=== PATIENT | female | born 1975 | race Caucasian/White ===

== ENCOUNTER → 2016-11-08 | Outpatient (CLI) | payer BC ==
--- NOTE | 2016-11-11 07:49 | MM ---
Reason for exam: screening (asymptomatic). Baseline mammogram. History: Family history of breast cancer in maternal aunt at age 60. Taking hormonal contraceptives beginning at age 19. Physical Findings: Nurse Summary: 0.5cm nodule in the left breast at 3:30 (nurse dw). MG Screening Mammo w CAD Bilateral CC and MLO view(s) were taken. There are scattered fibroglandular densities. Palpable marker upper outer quadrant on the left breast. Some global asymmetry seen posteriorly in the upper outer quadrant near the palpable marker. No suspicious calcifications, mass or other abnormality seen. These results were verbally communicated with the patient and result sheet given to the patient on 11/08/16. ASSESSMENT: Incomplete: need additional imaging evaluation, BI-RAD 0 RECOMMENDATION: Special view mammogram of the left breast. (lateral view) Ultrasound of the left breast. (upper outer quadrant)
--- NOTE | 2016-11-11 07:50 | MM ---
Reason for exam: additional evaluation requested from abnormal screening. History: Family history of breast cancer in maternal aunt at age 60. Taking hormonal contraceptives beginning at age 19. Physical Findings: Breast exam preformed at baseline screening. MG Work Up Mamm w CAD LT ML view(s) were taken of the left breast. There are scattered fibroglandular densities. There is no discrete abnormality. Palpable marker redemonstrated. These results were verbally communicated with the patient and result sheet given to the patient on 11/08/16. ASSESSMENT: Incomplete: need additional imaging evaluation, BI-RAD 0 RECOMMENDATION: Ultrasound of the left breast.
--- NOTE | 2016-11-11 07:53 | USB ---
Reason for exam: additional evaluation requested from abnormal screening. History: Family history of breast cancer in maternal aunt at age 60. Taking hormonal contraceptives beginning at age 19. US Breast Workup Limited LT Left breast ultrasound demonstrates no cystic or solid lesion with particular attention to the 3 o'clock area palpated by the nurse. Scanned upper outer quadrant 12-3 o'clock. These results were verbally communicated with the patient and result sheet given to the patient on 11/08/16. ASSESSMENT: Negative, BI-RAD 1 RECOMMENDATION: Return to routine screening mammogram schedule for both breasts. Manage on a clinical basis with regard to any suspicious palpable areas.
== END | disposition home or self-care (01) ==
LOC: RADMAMWWP 13:05
PROVIDERS: ATTEND Obstetrics & Gynecology
DX: Z12.31 Encounter for screening mammogram for malignant neoplasm of breast (principal); R92.8 Other abnormal and inconclusive findings on diagnostic imaging of breast; Z80.3 Family history of malignant neoplasm of breast
CPT/HCPCS: 76642; G0202; G0206

== ENCOUNTER → 2019-10-05 | Outpatient (CLI) | payer BC ==
--- NOTE | 2019-10-05 11:24 | MM ---
Reason for exam: screening (asymptomatic). Last mammogram was performed 2 years and 11 months ago. History: Family history of breast cancer in maternal aunt at age 60. Taking hormonal contraceptives beginning at age 19. Physical Findings: A clinical breast exam by your physician is recommended on an annual basis and results should be correlated with mammographic findings. MG Screening Mammo w CAD Bilateral CC and MLO view(s) were taken. Prior study comparison: November 08, 2016, left breast MG work up mamm w CAD LT. November 08, 2016, bilateral MG screening mammo w CAD. There are scattered fibroglandular densities. Asymmetric breast tissue stable left breast. There is no discrete abnormality. ASSESSMENT: Negative, BI-RAD 1 RECOMMENDATION: Routine screening mammogram of both breasts in 1 year.
== END | disposition home or self-care (01) ==
LOC: RADMAMWWP 07:18
PROVIDERS: ATTEND Obstetrics & Gynecology
DX: Z12.31 Encounter for screening mammogram for malignant neoplasm of breast (principal); Z80.3 Family history of malignant neoplasm of breast
CPT/HCPCS: 77067

== ENCOUNTER → 2023-05-08 | Outpatient (CLI) | payer BC ==
--- NOTE | 2023-05-09 12:18 | BD ---
EXAMINATION TYPE: Axial Bone Density DATE OF EXAM: 05/08/2023 CLINICAL HISTORY: 48 years old Female. ICD-10 CODE: N95.1 Height: 66 Weight: 267 FRAX RISK QUESTIONS: Family History (Parent hip fracture): no History of Fracture in Adulthood: no Secondary Osteoporosis: no Rheumatoid Arthritis: no Current Tobacco Use: no RISK FACTORS HISTORY OF: Family History of Osteoporosis: no Active: yes Diet low in dairy products/other sources of calcium: no Postmenopausal woman: yes MEDICATIONS: Additional Medications: no EXAM MEASUREMENTS: Bone mineral densitometry was performed using the [employer] System. Bone mineral density as measured about the Lumbar spine is: ----- L1-L4(G/cm2): 1.497 T Score Values are as follows: ----- L1: 1.5 ----- L2: 2.9 ----- L3: 3.4 ----- L4: 2.6 ----- L1-L4: 2.6 Z Score Values are as follows: ----- L1: 0.5 ----- L2: 1.9 ----- L3: 2.4 ----- L4: 1.6 ----- L1-L4: 1.7 Bone mineral density baseline Bone mineral density about the R hip (g/cm2): 1.177 Bone mineral density about the L hip (g/cm2): 1.194 T Score values are as follows: -----R Neck: 0.7 -----L Neck: 0.3 -----R Total: 1.3 -----L Total: 1.5 Z Score values are as follows: -----R Neck: 0.6 -----L Neck: 0.2 -----R Total: 0.9 -----L Total: 1.0 Bone mineral density baseline FRAX%s: The graph provided illustrates a 2.4% chance for a major osteoporotic fx and a 0.0% chance fo r the hips probability for fx in 10 years time. IMPRESSION: Normal (Values between +1 and -1 indicate normal bone mass). Consider repeating this study in 5 year s or sooner if there is some new clinical indication. NOTE: T-SCORE=SD OF THE YOUNG ADULT MEAN.
--- NOTE | 2023-05-12 01:41 | MM ---
Reason for Exam: Hx of breast augmentation, asymptomatic. Last mammogram was performed 3 year(s) and 7 month(s) ago. Patient History: Menarche at age 13. First Full-Term at age 24. Perimenopausal. Currently using Hormonal Contraceptives, starting at age 19. Bilateral Implants. Maternal aunt had breast cancer, age 60. Risk Values: Yvonne 5 year model risk: 0.8%. NCI Lifetime model risk: 8.4%. Prior Study Comparison: 11/08/2016 Bilateral Screening Mammogram, [facility]. 11/08/2016 Left Diagnostic Mammogram, [facility]. 10/05/2019 Bilateral Screening Mammogram, [facility]. Tissue Density: There are scattered fibroglandular densities. Findings: Analyzed By CAD. Bilateral retropectoral silicone implants are present, new in the interval. There is no suspicious group of microcalcifications or new suspicious mass in either breast. Overall Assessment: Negative, BI-RAD 1 Management: Screening Mammogram of both breasts in 1 year. . Patient should continue monthly self-breast exams. A clinical breast exam by your physician is recommended on an annual basis. This exam should not preclude additional follow-up of suspicious palpable abnormalities. Note on Yvonne scores and lifetime risk: 1. A Yvonne score greater than 3% is considered moderate risk. If this is the case, consider specialist referral to assess eligibility for a risk reducing agent. 2. If overall lifetime risk for the development of breast cancer is 20% or higher, the patient may qualify for future screening with alternating mammogram and breast MRI. Electronically signed and approved by: Ronan Nguyen M.D. Radiologist
== END | disposition home or self-care (01) ==
LOC: RADMAMWWP 15:14
PROVIDERS: ATTEND Obstetrics & Gynecology
DX: Z12.31 Encounter for screening mammogram for malignant neoplasm of breast (principal); N95.1 Menopausal and female climacteric states; Z80.3 Family history of malignant neoplasm of breast
CPT/HCPCS: 77063; 77067; 77080

== ENCOUNTER → 2024-10-29 | Outpatient (CLI) | payer BC ==
--- NOTE | 2024-10-29 11:21 | MM ---
Reason for Exam: Screening (asymptomatic). Last mammogram was performed 1 year(s) and 6 month(s) ago. Patient History: Menarche at age 13. First Full-Term at age 24. Perimenopausal. Currently using Hormonal Contraceptives, starting at age 19. Bilateral Implants. Maternal aunt had breast cancer, age 60. Risk Values: Yvonne 5 year model risk: 0.8%. NCI Lifetime model risk: 8.3%. Prior Study Comparison: 11/08/2016 Left Diagnostic Mammogram, [facility]. 10/05/2019 Bilateral Screening Mammogram, [facility]. 05/08/2023 Bilateral MG 3D screen mammo imp/cad., [facility]. Tissue Density: There are scattered areas of fibroglandular density. Findings: Analyzed By CAD. Redemonstrated bilateral retropectoral silicone implants. Multiple area of focal asymmetry lateral left breast middle depth remains unchanged. There is no suspicious group of microcalcifications or new suspicious mass in either breast. Overall Assessment: Benign, BI-RAD 2 Management: Screening Mammogram of both breasts in 1 year. Patient should continue monthly self-breast exams. A clinical breast exam by your physician is recommended on an annual basis. This exam should not preclude additional follow-up of suspicious palpable abnormalities. Note on Yvonne scores and lifetime risk: 1. A Yvonne score greater than 3% is considered moderate risk. If this is the case, consider specialist referral to assess eligibility for a risk reducing agent. 2. If overall lifetime risk for the development of breast cancer is 20% or higher, the patient may qualify for future screening with alternating mammogram and breast MRI. [facility], , 10/29/2024 11:17 AM. Electronically signed and approved by: Ronan Nguyen M.D. Radiologist
== END | disposition home or self-care (01) ==
LOC: RADMAMWWP 08:39
PROVIDERS: ATTEND Obstetrics & Gynecology
DX: Z12.31 Encounter for screening mammogram for malignant neoplasm of breast (principal); R92.323 Mammographic fibroglandular density, bilateral breasts; Z80.3 Family history of malignant neoplasm of breast; Z92.0 Personal history of contraception
CPT/HCPCS: 77063; 77067

== ENCOUNTER 2024-11-19 12:15 | Emergency (ER) | payer BC ==
[2024-11-19 13:19] LABS: Basophils # (A) 0.03 10*3/uL (0.00-0.10); Basophils % (A) 0.2 %; HCT 45.3 % (37.2-46.3); HGB 15.2 g/dL (12.0-15.0); Lymphocytes # (A) 0.17 10*3/uL (0.90-5.00); Lymphocytes % (A) 1.4 %; MCH 30.3 pg (27.0-32.0); MCHC 33.6 g/dL (32.0-37.0); MCV 90.2 fL (80.0-97.0); Monocytes # (A) 0.29 10*3/uL (0.20-1.00); Monocytes % (A) 2.3 %; Neutrophils # (A) 11.92 10*3/uL (1.80-7.70); Neutrophils % (A) 95.8 %; Platelet Count 226 10*3/uL (140-440); RBC 5.02 10*6/uL (4.10-5.20); RDW 13.7 % (11.5-14.5); WBC 12.45 10*3/uL (4.50-10.00)
[2024-11-19] MEDS: ONDANSETRON 4 MG/2 ML VIAL IVP STA (13:19)
[2024-11-19] MEDS: SODIUM CHLORIDE 0.9% 1,000 ML IV SCH (13:20)
[2024-11-19 13:38] LABS: HCG,Qualitative Serum Not Detected
[2024-11-19 13:46] LABS: ALT 20 U/L (4-34); African American GFR (CKD) >90 (>60 ml/min/1.73 sqM); Albumin 4.5 g/dL (3.5-5.0); Amylase 47 U/L (30-110); Anion Gap 13 mmol/L; Blood Urea Nitrogen 23 mg/dL (7-17); Calcium 9.7 mg/dL (8.4-10.2); Carbon Dioxide 21 mmol/L (22-30); Chloride 105 mmol/L (98-107); Glucose 125 mg/dL (74-99); Lipase 67 U/L (23-300); Non-African American GFR(CKD) >90 (>60 ml/min/1.73 sqM); Sodium 139 mmol/L (137-145); Total Protein 7.7 g/dL (6.3-8.2)
[2024-11-19 13:48] LABS: Appearance,Urine Clear (Clear); Bilirubin,Urine Negative (Negative); Blood,Urine Negative (Negative); Color,Urine Yellow; Glucose,Urine (UA) Negative (Negative); Ketones,Urine 2+ (Negative); Leukocyte Esterase,Urine Negative (Negative); Nitrite,Urine Negative (Negative); PH, Urine 6.5 (5.0-8.0); Protein,Urine Negative (Negative); Urobilinogen,Urine <2.0 mg/dL (<2.0)
[2024-11-19 13:52] LABS: AST 25 U/L (14-36); Alkaline Phosphatase 74 U/L (38-126); Potassium 4.5 mmol/L (3.5-5.1)
[2024-11-19 13:59] LABS: Influenza A Not Detected (Not Detectd); Influenza B Not Detected (Not Detectd); RSV Not Detected (Not Detectd)
[2024-11-19 14:06] LABS: Partial Thromboplastin Time 24.3 sec (22.0-30.0); Prothrombin Time 10.6 sec (10.0-12.5)
--- NOTE | 2024-11-19 14:15 | ED ---
General Adult HPI - General Chief complaint: Nausea/Vomiting/Diarrhea Stated complaint: NVD Time Seen by Provider: 11/19/24 12:50 Source: patient, RN notes reviewed, old records reviewed Mode of arrival: ambulatory Limitations: no limitations - History of Present Illness Initial comments: Patient is a 49-year-old female who presents emergency department complaining of abdominal pain, nausea, vomiting. All started this morning at 3:30 AM. States that seems to be improving but wants to be evaluated. Has some general periumbilical pain but no other obvious acute complaints. Denies chest pain or shortness of breath. Denies history of abdominal surgeries. Has no significant past medical history. Takes no medications at home. States the emesis is nonbilious nonbloody. States the diarrhea is nonbloody. Presents for further evaluation at this time. No known sick contacts. - Related Data Home Medications Medication Instructions Recorded Confirmed No Known Home Medications 02/20/14 02/20/14 Allergies Allergy/AdvReac Type Severity Reaction Status Date / Time No Known Allergies Allergy Verified 11/19/24 12:27 Review of Systems ROS Statement: Those systems with pertinent positive or pertinent negative responses have been documented in the HPI. Review of Systems: CONST: Denies fever EYES: Denies blurry vision ENT: Denies nasal congestion C/V: Denies Chest pain RESP: Denies shortness of breath GI: Endorses periumbilical discomfort : Denies dysuria SKIN: Denies rash. MSK: Denies joint pain. NEURO: Denies headache ROS Other: All systems not noted in ROS Statement are negative. Past Medical History Past Medical History: No Reported History History of Any Multi-Drug Resistant Organisms: None Reported Past Surgical History: No Surgical Hx Reported Past Psychological History: No Psychological Hx Reported Smoking Status: Never smoker Past Alcohol Use History: Rare Past Drug Use History: None Reported General Exam - General Exam Comments Initial Comments: General: Appears in no acute distress. HEAD: Normal with no signs of head trauma. EYES: EOMI ENT: Dry mucous membranes. RESPIRATORY: Clear breath sounds bilaterally. No wheezes, rales, or rhonchi. C/V: Regular rate and rhythm. S1 and S2 auscultated, peripheral pulses 2+ and intact throughout ABD: Abdomen is soft, nondistended. Tender to palpation periumbilically. No guarding or rebound tenderness. No peritoneal signs. EXT: no obvious deformity SKIN: No rashes or lesions observed on exposed skin. NEURO: Alert and oriented x 4. Limitations: no limitations Course Vital Signs 11/19/24 11/19/24 12:25 15:04 Temperature 98.6 F 97.8 F Pulse Rate 77 73 Respiratory 20 16 Rate Blood Pressure 141/81 125/82 O2 Sat by Pulse 99 100 Oximetry Medical Decision Making - Medical Decision Making Was pt. sent in by a medical professional or institution (, PA, MAIL [employer], urgent care, hospital, or skilled nursing...) When possible be specific @ -No Did you speak to anyone other than the patient for history (EMS, parent, family, police, friend...)? What history was obtained from this source @ -No Did you review nursing and triage notes (agree or disagree)? Why? @ -I reviewed and agree with nursing and triage notes Were old charts reviewed (outside hosp., previous admission, EMS record, old EKG, old radiological studies, urgent care reports/EKG's, skilled nursing records)? Report findings @ -No old charts were reviewed Differential Diagnosis (chest pain, altered mental status, abdominal pain women, abdominal pain men, vaginal bleeding, weakness, fever, dyspnea, syncope, headache, dizziness, GI bleed, back pain, seizure, CVA, palpatations, mental health, musculoskeletal)? @ -Differential Abdominal Pain Women: Appendicitis, Cholecystitis, diverticulosis, ischemic bowel, pancreatitis, hepatitis, UTI, gastroenteritis, AAA, incarcerated hernia, bowel obstruction, constipation, inflammatory bowel, hepatitis, peptic ulcer disease, splenic infa rction, perforated viscus, vulvitis, ovarian torsion, PID, kidney stone, placenta abruption, this is not meant to be an all-inclusive list EKG interpreted by me (3pts min.). @ -None none X-rays interpreted by me (1pt min.). @ -None done CT interpreted by me (1pt min.). @ -None done U/S interpreted by me (1pt. min.). @ -None done What testing was considered but not performed or refused? (CT, X-rays, U/S, labs)? Why? @ -I offered CT imaging however patient declines at this time. Patient is feeling improved following symptomatic treatment. I am in agreement this plan. What meds were considered but not given or refused? Why? @ -None Did you discuss the management of the patient with other professionals (professionals i.e. , PA, [employer], lab, RT, psych nurse, social worker psychiatric, od grinder operator, teacher, medical scientific officer, case resource manager)? Give summary @ -No Was smoking cessation discussed for >3mins.? @ -No Was critical care preformed (if so, how long)? @ -No Were there social determinants of health that impacted care today? How? (Homelessness, low income, unemployed, alcoholism, drug addiction, transportation, low edu. Level, literacy, decrease access to med. care, assisted, rehab)? @ -No Was there de-escalation of care discussed even if they declined (Discuss DNR or withdrawal of care, Hospice)? DNR status @ -No What co-morbidities impacted this encounter? (DM, HTN, Smoking, COPD, CAD, Canc er, CVA, ARF, Chemo, Hep., AIDS, mental health diagnosis, sleep apnea, morbid obesity)? @ -None Was patient admitted / discharged? Hospital course, mention meds given and route, prescriptions, significant lab abnormalities, going to OR and other pertinent info. @ -Patient presents with nausea, vomiting, diarrhea as well as mild abdominal discomfort. She states all symptoms are improved and that 1 to be evaluated. Vital signs within acceptable limits. Exam remarkable for dehydration. We will obtain abdominal labs. I did offer obtaining CT abdomen pelvis however patient would like to obtain labs first and see how she feels after medications which I believe is reasonable. Labs remarkable for mild leukocytosis of 12.4 which is likely reactive. Lactic acid is negative. Remainder the labs unremarkable. On reevaluation, patient is feeling improved. I once again offered the CT imaging which she declined. Patient will be discharged home at this time. She was in agreement this plan. She is discharged home with an ODT Zofran starter pack. Symptoms likely secondary to a viral syndrome. I instructed the patient to follow up with their PCP in the next 1-3 days. I explained that the patient should return to the emergency department if they experience any worsening symptoms. Strict return precautions were discussed with the patient. The patient expressed understanding of these instructions. I answered all questions that the patient had. The patient was discharged home in good condition with their prescriptions and follow up information. Undiagnosed new problem with uncertain prognosis? @ -No Drug Therapy requiring intensive monitoring for toxicity (Heparin, Nitro, Insu ellie, Cardizem)? @ -No Were any procedures done? @ -No Diagnosis/symptom? @ -Abdominal pain of unknown etiology, dehydration, nausea and vomiting. Diarrhea Acute, or Chronic, or Acute on Chronic? @ -Acute Uncomplicated (without systemic symptoms) or Complicated (systemic symptoms)? @ -Uncomplicated Side effects of treatment? @ -No Exacerbation, Progression, or Severe Exacerbation? @ -No Poses a threat to life or bodily function? How? (Chest pain, [place], [place], pneumonia, PE, COPD, DKA, ARF, appy, cholecystitis, CVA, Diverticulitis, Homicidal, Suicidal, threat to staff... and all critical care pts) @ -Unlikely - Lab Data Result diagrams: 11/19/24 13:07 11/19/24 13:07 Lab Results 11/19/24 11/19/24 11/19/24 Range/Units 13:07 13:07 13:07 WBC 12.45 H (4.50-10.00) 10*3/uL RBC 5.02 (4.10-5.20) 10*6/uL Hgb 15.2 H (12.0-15.0) g/dL Hct 45.3 (37.2-46.3) % MCV 90.2 (80.0-97.0) fL MCH 30.3 (27.0-32.0) pg MCHC 33.6 (32.0-37.0) g/dL Plt Count 226 (140-440) 10*3/uL MPV 12.0 (9.5-12.2) fL Immature Gran % (Auto) 0.3 % Neutrophils % 95.8 % Lymphocytes % 1.4 % Monocytes % 2.3 % Eosinophils % 0.0 % Basophils % 0.2 % Immature Gran # 0.04 (0.00-0.04) 10*3/uL Neutrophils # 11.92 H (1.80-7.70) 10*3/uL Lymphocytes # 0.17 L (0.90-5.00) 10*3/uL Monocytes # 0.29 (0.20-1.00) 10*3/uL Eosinophils # 0.00 L (0.04-0.35) 10*3/uL Basophils # 0.03 (0.00-0.10) 10*3/uL PT 10.6 (10.0-12.5) sec INR 1.0 (<1.2) APTT 24.3 (22.0-30.0) sec Sodium 139 (137-145) mmol/L Potassium 4.5 (3.5-5.1) mmol/L Chloride 105 (98-107) mmol/L Carbon Dioxide 21 L (22-30) mmol/L Anion Gap 13 mmol/L BUN 23 H (7-17) mg/dL Creatinine 0.62 (0.52-1.04) mg/dL Est GFR (CKD-EPI)AfAm >90 (>60 ml/min/1.73 sqM) Est GFR (CKD-EPI)NonAf >90 (>60 ml/min/1.73 sqM) Glucose 125 H (74-99) mg/dL Plasma Lactic Acid Moustapha (0.7-2.0) mmol/L Calcium 9.7 (8.4-10.2) mg/dL Total Bilirubin 1.0 (0.2-1.3) mg/dL AST 25 (14-36) U/L ALT 20 (4-34) U/L Alkaline Phosphatase 74 (38-126) U/L Total Protein 7.7 (6.3-8.2) g/dL Albumin 4.5 (3.5-5.0) g/dL Amylase 47 (30-110) U/L Lipase 67 (23-300) U/L HCG, Qual Not Detected Urine Color Urine Appearance (Clear) Urine pH (5.0-8.0) Ur Specific [place] (1.001-1.035) Urine Protein (Negative) Urine Glucose (UA) (Negative) Urine Ketones (Negative) Urine Blood (Negative) Urine Nitrite (Negative) Urine Bilirubin (Negative) Urine Urobilinogen (<2.0) mg/dL Ur Leukocyte Esterase (Negative) Influenza Type A (PCR) (Not Detectd) Influenza Type B (PCR) (Not Detectd) RSV (PCR) (Not Detectd) SARS-CoV-2 (PCR) (Not Detectd) 11/19/24 11/19/24 11/19/24 Range/Units 13:07 13:17 13:39 WBC (4.50-10.00) 10*3/uL RBC (4.10-5.20) 10*6/uL Hgb (12.0-15.0) g/dL Hct (37.2-46.3) % MCV (80.0-97.0) fL MCH (27.0-32.0) pg MCHC (32.0-37.0) g/dL Plt Count (140-440) 10*3/uL MPV (9.5-12.2) fL Immature Gran % (Auto) % Neutrophils % % Lymphocytes % % Monocytes % % Eosinophils % % Basophils % % Immature Gran # (0.00-0.04) 10*3/uL Neutrophils # (1.80-7.70) 10*3/uL Lymphocytes # (0.90-5.00) 10*3/uL Monocytes # (0.20-1.00) 10*3/uL Eosinophils # (0.04-0.35) 10*3/uL Basophils # (0.00-0.10) 10*3/uL PT (10.0-12.5) sec INR (<1.2) APTT (22.0-30.0) sec Sodium (137-145) mmol/L Potassium (3.5-5.1) mmol/L Chloride (98-107) mmol/L Carbon Dioxide (22-30) mmol/L Anion Gap mmol/L BUN (7-17) mg/dL Creatinine (0.52-1.04) mg/dL Est GFR (CKD-EPI)AfAm (>60 ml/min/1.73 sqM) Est GFR (CKD-EPI)NonAf (>60 ml/min/1.73 sqM) Glucose (74-99) mg/dL Plasma Lactic Acid Moustapha 1.7 (0.7-2.0) mmol/L Calcium (8.4-10.2) mg/dL Total Bilirubin (0.2-1.3) mg/dL AST (14-36) U/L ALT (4-34) U/L Alkaline Phosphatase (38-126) U/L Total Protein (6.3-8.2) g/dL Albumin (3.5-5.0) g/dL Amylase (30-110) U/L Lipase (23-300) U/L HCG, Qual Urine Color Yellow Urine Appearance Clear (Clear) Urine pH 6.5 (5.0-8.0) Ur Specific [place] 1.030 (1.001-1.035) Urine Protein Negative (Negative) Urine Glucose (UA) Negative (Negative) Urine Ketones 2+ H (Negative) Urine Blood Negative (Negative) Urine Nitrite Negative (Negative) Urine Bilirubin Negative (Negative) Urine Urobilinogen <2.0 (<2.0) mg/dL Ur Leukocyte Esterase Negative (Negative) Influenza Type A (PCR) Not Detected (Not Detectd) Influenza Type B (PCR) Not Detected (Not Detectd) RSV (PCR) Not Detected (Not Detectd) SARS-CoV-2 (PCR) Not Detected (Not Detectd) Disposition Clinical Impression: Nausea vomiting and diarrhea, Dehydration, Abdominal pain of unknown etiology Disposition: HOME SELF-CARE Condition: Good Instructions (If sedation given, give patient instructions): Acute Nausea and Vomiting (ED), Acute Diarrhea (ED), Abdominal Pain (ED) Is patient prescribed a controlled substance at d/c from ED?: No Referrals: Jose Manuel Augustin MD [Primary Care Provider] - 1-2 days Time of Disposition: 14:57
[2024-11-19 15:05] VITALS: BP 125/82; PULSE 73; RESP 16; TEMP 97.8
[2024-11-19] MEDS: ONDANSETRON 4 MG ODT STARTER PACK 2 TAB BTL PO STA (15:05)
== END 2024-11-19 15:10 | disposition home or self-care (01) ==
LOC: EC 12:15
DX: R11.2 Nausea with vomiting, unspecified (principal); E86.0 Dehydration; R10.33 Periumbilical pain
CPT/HCPCS: 36415; 80053; 82150; 83605; 83690; 85025; 85610; 85730; 81003; 84703; 87636; 99284; 96374; 96361 ×2; J2405; S0119